=== PATIENT | female | born 1950 | race Caucasian/White ===

== ENCOUNTER 2018-04-14 15:52 | Emergency (ER) | payer MEDICARE, MEDICAID ==
[2018-04-14] MEDS ORDERED: ONDANSETRON HCL INJ/PF 4 MG/2 ML SDV IV ONE (16:37)
--- NOTE | 2018-04-14 16:38 | ER Document Report ---
ED Medical Screen (RME) - General Chief Complaint: Constipation Stated Complaint: CONSTIPATED, BACK PAIN Time Seen by Provider: 04/14/18 16:36 Mode of Arrival: Ambulatory Information source: Patient, [facility] Records Notes: 67-year-old female with hypertension, hypothyroidism, B12 deficiency, arthritis, depression who takes Ultracet daily presents with complaint of rectal pain, back pain and inability to have a bowel movement. Patient states her last bowel movement was 6 days prior to arrival. She is passing gas. She denies vomiting. She denies any major abdominal surgeries. I have greeted and performed a rapid initial assessment of this patient. A comprehensive ED assessment and evaluation of the patient, analysis of test results and completion of medical decision making process we will be contacted by additional ED providers. PHYSICAL EXAMINATION: Vital signs reviewed GENERAL: Well-appearing, well-nourished and in no acute distress. LUNGS: No respiratory distress Musculoskeletal: Normal range of motion NEUROLOGICAL: Normal speech, normal gait. PSYCH: Normal mood, normal affect. SKIN: Warm, Dry, normal turgor, no rashes or lesions noted. - HPI Onset: Last week Onset/Duration: Persistent Quality of pain: Achy Severity: Mild Associated Symptoms: Nausea. denies: Body/muscle aches, Diarrhea, Headache Exacerbated by: Denies Relieved by: Denies Similar symptoms previously: Yes Recently seen / treated by doctor: No - Related Data Smoking: Non-smoker Frequency of alcohol use: None Drug Abuse: None Allergies/Adverse Reactions: erythromycin base Allergy (Verified 04/14/18 15:58) Penicillins Allergy (Verified 04/14/18 15:58) Past Medical History Renal/ Medical History: Denies: Hx Peritoneal Dialysis Physical Exam - Vital signs Vitals: Temp Pulse Resp BP Pulse Ox 98.2 F 87 20 161/103 H 96 04/14/18 16:15 04/14/18 16:15 04/14/18 16:15 04/14/18 16:15 04/14/18 16:15 Course - Vital Signs Vital signs: Temp Pulse Resp BP Pulse Ox 98.2 F 87 20 161/103 H 96 04/14/18 16:15 04/14/18 16:15 04/14/18 16:15 04/14/18 16:15 04/14/18 16:15
--- NOTE | 2018-04-14 18:29 | ER Document Report ---
ED GI/ - General Chief Complaint: Constipation Stated Complaint: CONSTIPATED, BACK PAIN Time Seen by Provider: 04/14/18 16:36 Mode of Arrival: Ambulatory Notes: 67-year-old female patient emergency department complaining of some bowel dysregulation over the last week. States that she is never constipated. Has not been able to have a bowel movement has been having pain in the lower abdomen and rectal area and sometimes radiating into the vagina. States that she is taken multiple rounds of bowel regimens but without success. Has had one bout of diarrhea but has not had a significant amount of stool. Patient feels a little weak and has some intermittent fevers and chills as well. No vomiting. No significant upper abdominal pain or other issues at this time. Patient has multiple medical problems. Multiple medications. - HPI Patient complains to provider of: Abdominal pain Onset: Last week Timing/Duration: Gradual, Constant, Waxing and waning Quality of pain: Dull Severity at maximum: Moderate Severity in ED: Moderate Pain Level: 1 Location: LLQ - Related Data Allergies/Adverse Reactions: erythromycin base Allergy (Verified 04/14/18 15:58) Penicillins Allergy (Verified 04/14/18 15:58) Past Medical History - General Information source: Patient, H Records - Social History Smoking Status: Never Smoker Frequency of alcohol use: None Drug Abuse: None Family History: Reviewed & Not Pertinent Patient has suicidal ideation: No Patient has homicidal ideation: No - Past Medical History Cardiac Medical History: Reports: Hx Hypertension Endocrine Medical History: Reports: Hx Hypothyroidism Renal/ Medical History: Denies: Hx Peritoneal Dialysis Psychiatric Medical History: Reports: Hx Depression Review of Systems - Review of Systems Notes: Constitutional: denies: Chills, Diaphoresis, Fever, Malaise, Weakness EENT: denies: Eye discharge, Blurred vision, Tearing, Double vision, Nose congestion, Nose discharge, Throat swelling, Mouth pain Cardiovascular: denies: Palpitations, Heart racing, Orthopnea, Dyspnea, Chest pain Respiratory: denies: Cough, Hurts to breathe, Wheezing, Shortness of breath Gastrointestinal: Planing of abdominal discomfort, constipation, bloating Genitourinary: denies: Burning, Dysuria, Discharge, Frequency, Flank pain, Hematuria Musculoskeletal: denies: Joint pain, Joint swelling, Muscle pain, Muscle stiffness, back pain Hematologic/Lymphatic: denies: Anemia, Easy bleeding, Easy bruising, Blood clots Neurological/Psychological: denies: Confusion, Dementia, Depression, Loss of consciousness Skin: No lesions, no masses, no skin breakdown, no abscesses Physical Exam - Vital signs Vitals: Temp Pulse Resp BP Pulse Ox 98.2 F 87 20 161/103 H 96 04/14/18 16:15 04/14/18 16:15 04/14/18 16:15 04/14/18 16:15 04/14/18 16:15 Interpretation: Normal - General General appearance: Appears well, Alert - HEENT Head: Normocephalic, Atraumatic Eyes: Normal Pupils: PERRL - Respiratory Respiratory status: No respiratory distress Chest status: Nontender Breath sounds: Normal Chest palpation: Normal - Cardiovascular Rhythm: Regular Heart sounds: Normal auscultation Murmur: No - Abdominal Inspection: Normal Distension: No distension Bowel sounds: Normal Tenderness: Nontender Organomegaly: No organomegaly - Rectal Tenderness: No Stool: Heme negative Hemorrhoids: None - Back Back: Normal, Nontender - Extremities General upper extremity: Normal inspection, Nontender, Normal color, Normal ROM, Normal temperature General lower extremity: Normal inspection, Nontender, Normal color, Normal ROM, Normal temperature, Normal weight bearing. No: Mukesh's sign - Neurological Neuro grossly intact: Yes Cognition: Normal Orientation: AAOx4 Cindy Coma Scale Eye Opening: Spontaneous [place] Coma Scale Verbal: Oriented Cindy Coma Scale Motor: Obeys Commands Cindy Coma Scale Total: 15 Speech: Normal Motor strength normal: LUE, RUE, LLE, RLE Sensory: Normal - Psychological Associated symptoms: Normal affect, Normal mood - Skin Skin Temperature: Warm Skin Moisture: Dry Skin Color: Normal Course - Re-evaluation Re-evalutation: 04/14/18 22:03 Laboratory 04/14/18 04/14/18 04/14/18 16:54 16:54 16:54 WBC 6.9 RBC 5.06 Hgb 14.9 Hct 43.2 MCV 85 MCH 29.4 MCHC 34.5 RDW 14.2 H Plt Count 235 Seg Neutrophils % 71.4 Lymphocytes % 21.7 Monocytes % 4.4 Eosinophils % 1.6 Basophils % 0.9 Absolute Neutrophils 4.9 Absolute Lymphocytes 1.5 Absolute Monocytes 0.3 Absolute Eosinophils 0.1 Absolute Basophils 0.1 Sodium 135.6 L Potassium 4.4 Chloride 98 Carbon Dioxide 27 Anion Gap 11 BUN 15 Creatinine 0.69 Est GFR ( Amer) > 60 Est GFR (Non-Af Amer) > 60 Glucose 85 Calcium 9.5 Total Bilirubin 0.5 Direct Bilirubin 0.2 Neonat Total Bilirubin Not Reportable Neonat Direct Bilirubin Not Reportable Neonat Indirect Bili Not Reportable AST 15 ALT 21 Alkaline Phosphatase 104 Total Protein 6.7 Albumin 4.0 TSH 2.04 Free T4 1.06 Urine Color Urine Appearance Urine pH Ur Specific [place] Urine Protein Urine Glucose (UA) Urine Ketones Urine Blood Urine Nitrite Urine Bilirubin Urine Urobilinogen Ur Leukocyte Esterase Urine WBC (Auto) Urine RBC (Auto) U Hyaline Cast (Auto) Urine Bacteria (Auto) Squamous Epi Cells Auto Urine Mucus (Auto) Urine Ascorbic Acid 04/14/18 20:10 WBC RBC Hgb Hct MCV MCH MCHC RDW Plt Count Seg Neutrophils % Lymphocytes % Monocytes % Eosinophils % Basophils % Absolute Neutrophils Absolute Lymphocytes Absolute Monocytes Absolute Eosinophils Absolute Basophils Sodium Potassium Chloride Carbon Dioxide Anion Gap BUN Creatinine Est GFR ( Amer) Est GFR (Non-Af Amer) Glucose Calcium Total Bilirubin Direct Bilirubin Neonat Total Bilirubin Neonat Direct Bilirubin Neonat Indirect Bili AST ALT Alkaline Phosphatase Total Protein Albumin TSH Free T4 Urine Color YELLOW Urine Appearance SLIGHTLY-CLOUDY Urine pH 5.0 Ur Specific [place] 1.018 Urine Protein NEGATIVE Urine Glucose (UA) NEGATIVE Urine Ketones NEGATIVE Urine Blood NEGATIVE Urine Nitrite NEGATIVE Urine Bilirubin NEGATIVE Urine Urobilinogen NEGATIVE Ur Leukocyte Esterase SMALL H Urine WBC (Auto) 12 Urine RBC (Auto) 1 U Hyaline Cast (Auto) 3 Urine Bacteria (Auto) TRACE Squamous Epi Cells Auto 2 Urine Mucus (Auto) MOD Urine Ascorbic Acid NEGATIVE 04/14/18 22:29 Acute Abdomen Series 04/14/18 16:37 IMPRESSION: Nonobstructive bowel gas pattern. Moderate amount of stool at the colon. Abdomen/Pelvis CT 04/14/18 19:04 IMPRESSION: Negative for acute intra-abdominal/pelvic process. Probable adrenal adenoma on the right. This could be further confirmed non emergently with dedicated MRI. Abundant stool in the colon. TECHNICAL DOCUMENTATION: Quality ID # [id number]: Final reports with documentation of one or more dose reduction techniques (e.g., Automated exposure control, adjustment of the mA and/or kV according to patient size, use of iterative reconstruction technique) copyright 2011 [employer]- All Rights Reserved There is no evidence of major abdominal pathology other than an incidental 11 x 11 mm right adrenal nodule which should be followed up and not emergently. She has an abundant stool in the colon. At this time I am recommending that she continue with her home bowel regimen. Follow-up with her regular doctor. Return for worsening symptoms or concerns. Urine was cultured due to no urine symptoms and mild findings on the labs. Patient was comfortable with this plan. - Vital Signs Vital signs: Temp Pulse Resp BP Pulse Ox 98.2 F 87 20 161/103 H 96 04/14/18 16:15 04/14/18 16:15 04/14/18 16:15 04/14/18 16:15 04/14/18 16:15 - Laboratory Result Diagrams: 04/14/18 16:54 04/14/18 16:54 Laboratory results interpreted by me: 04/14/18 04/14/18 04/14/18 16:54 16:54 20:10 RDW 14.2 H Sodium 135.6 L Ur Leukocyte Esterase SMALL H Discharge - Discharge Clinical Impression: Constipation Qualifiers: Constipation type: unspecified constipation type Qualified Code(s): K59.00 - Constipation, unspecified Adrenal adenoma Qualifiers: Laterality: right Qualified Code(s): D35.01 - Benign neoplasm of right adrenal gland Condition: Good Disposition: HOME, SELF-CARE Instructions: Constipation ([facility]), Laxative ([facility]) Additional Instructions: You may benefit from starting MiraLAX daily for the next couple of weeks. You may use some intermittent Dulcolax tablets or suppositories as well. I also recommend beginning daily magnesium if you are having issues with your bowels as this can sometimes help with regularity. There was an incidental finding on the CT scan of the right adrenal gland. This will need outpatient follow-up. In the event that you develop severe pain, worsening symptoms or other concerns please return. Referrals: IRON BUSTILLOS MD [ACTIVE STAFF] - Follow up as needed [facility] - Follow up as needed
--- NOTE | 2018-04-14 18:33 | RADIOLOGY REPORT (SQ) ---
EXAM DESCRIPTION: ACUTE ABDOMEN SERIES COMPLETED DATE/TIME: 04/14/2018 5:55 pm REASON FOR STUDY: No bowel movement in 5 days COMPARISON: None. NUMBER OF VIEWS: Three views. TECHNIQUE: Frontal chest, supine abdomen and upright/decubitus abdomen radiographic images acquired. LIMITATIONS: None. FINDINGS: CHEST: No consolidation, pleural effusion or pneumothorax. FREE AIR: None. BOWEL GAS PATTERN: Nonobstructive pattern. No dilated loops or air fluid levels. Moderate amount of stool at the colon. CALCIFICATIONS: No suspicious calcifications. HARDWARE: None in the abdomen. SOFT TISSUES: No gross mass or suggestion of organomegaly. BONES: Degenerative changes at the spine. IMPRESSION: Nonobstructive bowel gas pattern. Moderate amount of stool at the colon. TECHNICAL DOCUMENTATION: JOB ID: [id number] 2010 [employer]- All Rights Reserved Reading location - IP/workstation name: [email or web address]
[2018-04-14 19:19] LABS: ABSOLUTE BASOPHILS # (AUTO) 0.1 10^3/uL (0.0-0.2); ABSOLUTE EOSINOPHILS # (AUTO) 0.1 10^3/uL (0.0-0.6); ABSOLUTE LYMPHOCYTES (AUTO) 1.5 10^3/uL (0.5-4.7); ABSOLUTE MONOCYTES (AUTO) 0.3 10^3/uL (0.1-1.4); ABSOLUTE NEUT (AUTO) 4.9 10^3/uL (1.7-8.2); BASOPHILS % (AUTO) 0.9 % (0-2); EOSINOPHILS % (AUTO) 1.6 % (0-6); HEMATOCRIT 43.2 % (36.0-47.0); HEMOGLOBIN 14.9 g/dL (12.0-15.5); LYMPHOCYTES % (AUTO) 21.7 % (13-45); MEAN CORPUSCULAR HEMOGLOBIN 29.4 pg (27.0-33.4); MEAN CORPUSCULAR HGB CONC 34.5 g/dL (32.0-36.0); MEAN CORPUSCULAR VOLUME 85 fl (80-97); MONOCYTES % (AUTO) 4.4 % (3-13); PLATELET COUNT 235 10^3/uL (150-450); RED BLOOD COUNT 5.06 10^6/uL (3.72-5.28); RED CELL DISTRIBUTION WIDTH 14.2 % (11.5-14.0); SEGMENTED NEUTROPHILS % (AUTO) 71.4 % (42-78); TOTAL CELLS COUNTED % (AUTO) 100 %; WHITE BLOOD COUNT 6.9 10^3/uL (4.0-10.5)
[2018-04-14 19:27] LABS: ALANINE AMINOTRANSFERASE 21 U/L (9-52); ALKALINE PHOSPHATASE 104 U/L (38-126); ANION GAP 11 (5-19); ASPARTATE AMINO TRANSFERASE 15 U/L (14-36); BILIRUBIN,DIRECT 0.2 mg/dL (0.0-0.4); BILIRUBIN,TOTAL 0.5 mg/dL (0.2-1.3); BLOOD UREA NITROGEN 15 mg/dL (7-20); CALCIUM 9.5 mg/dL (8.4-10.2); CARBON DIOXIDE 27 mmol/L (22-30); CHLORIDE 98 mmol/L (98-107); GLUCOSE 85 mg/dL (75-110); POTASSIUM 4.4 mmol/L (3.6-5.0); SODIUM 135.6 mmol/L (137-145); TOTAL PROTEIN 6.7 g/dL (6.3-8.2)
[2018-04-14 19:44] LABS: FREE T4 (FREE THYROXINE) 1.06 ng/dL (0.78-2.19)
[2018-04-14 19:58] LABS: THYROID STIMULATING HORMONE 2.04 uIU/mL (0.47-4.68)
[2018-04-14 20:43] LABS: APPEARANCE,URINE SLIGHTLY-CLOUDY; BILIRUBIN,URINE NEGATIVE (NEGATIVE); COLOR,URINE YELLOW; GLUCOSE, URINE NEGATIVE (NEGATIVE); KETONES,URINE NEGATIVE (NEGATIVE); LEUKOCYTE ESTERASE,URINE SMALL (NEGATIVE); NITRITE,URINE NEGATIVE (NEGATIVE); PROTEIN,URINE NEGATIVE (NEGATIVE); URINE SPECIFIC GRAVITY 1.018; UROBILINOGEN,URINE NEGATIVE mg/dL (<2.0)
--- NOTE | 2018-04-14 22:14 | RADIOLOGY REPORT (SQ) ---
EXAM DESCRIPTION: CT ABDOMEN PELVIS WITH IV CONTRAST COMPLETED DATE/TME: 04/14/2018 19:04 CLINICAL HISTORY: 67 years, Female, diffuse abdominal pain COMPARISON: None. TECHNIQUE: [id number] Images stored on PACS. All CT scanners at this facility use dose modulation, iterative reconstruction, and/or weight based dosing when appropriate to reduce radiation dose to as low as reasonably achievable (ALARA). [facility]: Dose Right [facility]: CareDose [facility]: Dose Right [facility]: Teradose 4D [facility]: [employer] LIMITATIONS: None. FINDINGS: Limited evaluation of the lung bases is unremarkable. Osseous structures are grossly intact. Fatty infiltrative change to the liver. The spleen, left adrenal gland are unremarkable. There is a 11 x 11 mm right adrenal nodule. This likely reflects adenoma but could further be assessed nonemergently. The pancreas, gallbladder, kidneys are unremarkable. No evidence for bowel obstruction. Large amount stool in the colon. Appendix not well seen however no pericecal inflammation. Correlate with surgical history. No free air or free fluid. IMPRESSION: Negative for acute intra-abdominal/pelvic process. Probable adrenal adenoma on the right. This could be further confirmed non emergently with dedicated MRI. Abundant stool in the colon. TECHNICAL DOCUMENTATION: Quality ID # [id number]: Final reports with documentation of one or more dose reduction techniques (e.g., Automated exposure control, adjustment of the mA and/or kV according to patient size, use of iterative reconstruction technique) copyright 2011 [employer]- All Rights Reserved
[2018-04-14 23:12] VITALS: BP 151/92
== END 2018-04-14 22:50 | disposition home or self-care (01) ==
LOC: ER 15:52
DX: K59.00 Constipation, unspecified (principal); D35.01 Benign neoplasm of right adrenal gland; R19.7 Diarrhea, unspecified; R53.1 Weakness; R50.9 Fever, unspecified; R10.32 Left lower quadrant pain; I10 Essential (primary) hypertension; Z88.1 Allergy status to other antibiotic agents; Z88.0 Allergy status to penicillin
CPT/HCPCS: 99284; 96374; 36415; 87086; 84439; 84443; 85025; 80053; 81001; 74022; 74177; J2405